=== PATIENT | female | born 1990 | race American Indian/Alaskan Native ===

== ENCOUNTER 2021-04-05 22:48 | Emergency (ER) | payer MEDICAID, OTHER ==
[2021-04-05] MEDS ORDERED: HYDROmorphone 1 MG/1 ML INJ IM ONE (23:03)
[2021-04-05] MEDS ORDERED: ONDANSETRON 4 MG/2 ML INJ IV ONE (23:03)
[2021-04-05] MEDS ORDERED: HYDROmorphone 1 MG/1 ML INJ ONE (23:04)
--- NOTE | 2021-04-05 23:19 | Emergency Department Report ---
HPI - General Chief Complaint: Extremity Injury, Lower Time Seen by Provider: 04/05/21 23:02 - HPI HPI: 30-year-old female with no known past medical history presents complaining of severe left ankle pain and dislocation after a trip and fall. The patient was bringing in boxes at home when her dog ran outside and in the chaos, she tripped on one of the steps coming down the stairs and fell onto her left ankle. She did not hit her head or lose consciousness. She bruised her left elbow but her only pain at this time is in her left ankle it is 10 out of 10 in severity. The ankle is deformed. The patient denies any other symptoms or complaints. Her LMP was 1 week ago. ED Past Medical Hx - Past Medical History Previous Medical History?: No ED Review of Systems ROS: Stated complaint: LT ANKLE INJURY Other details as noted in HPI Constitutional: denies: chills, fever Eyes: denies: eye pain, vision change ENT: denies: throat pain, congestion Respiratory: denies: cough, shortness of breath Cardiovascular: denies: chest pain, palpitations Gastrointestinal: denies: abdominal pain, nausea, vomiting Genitourinary: denies: dysuria, frequency Musculoskeletal: other (left ankle pain). denies: back pain Neurological: denies: headache, weakness, numbness, paresthesias Physical Exam - Physical Exam Vital Signs: Vital Signs 04/05/21 22:53 Temperature 98.0 F Pulse Rate 137 H Respiratory 20 Rate Blood Pressure 126/103 O2 Sat by Pulse 84 Oximetry Physical Exam: GENERAL: Well developed and well nourished. In moderate distress secondary to pain. HEAD: Normocephalic. No obvious signs of trauma. ENT: Moist mucous membranes. EYES: Extraocular movements are intact. Pupils are equal round and reactive to light bilaterally NECK: Supple. Full ROM is intact. Trachea is midline. LUNGS: Nonlabored breathing. Equal chest rise bilaterally. Clear to auscultation bilaterally. CARDIOVASCULAR: Regular rate and rhythm. No murmurs or rubs. VASCULAR: 2+ DP pulses bilaterally. Cap refill < 2 seconds bilateral toes and fingers ABDOMEN: Abdomen is soft and nondistended. There is no significant tenderness, guarding or rebound. SKIN: Skin is warm and dry NEURO: Patient is awake, alert, and oriented. 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 No focal deficits. Normal motor and sensory exam throughout with exception of the left ankle which cannot be assessed due to pain. Normal strength in bilateral toes. Normal sensation throughout all lower extremity dermatomes bilaterally. Normal speech. MUSCULOSKELETAL: Obvious deformity of the left ankle which is externally rotated with the tibia seen tenting the skin of the medial ankle. Neurovascularly intact distally. There is no tenderness of the base of the fifth metatarsal on the left. 2+ DP pulses bilaterally. The left elbow is slightly bruised but has full range of motion and is nontender. BACK/SPINE: No midline tenderness or step-offs of the C/T/L spine. No costovertebral angle tenderness. ED Course Vital Signs 04/05/21 22:53 Temperature 98.0 F Pulse Rate 137 H Respiratory 20 Rate Blood Pressure 126/103 O2 Sat by Pulse 84 Oximetry - Orthopedic Joint Reduction Joint #1 Consent Obtained: verbal consent Side: left Joint Reduction Location: ankle Analgesia: hematoma block Local Anesthetic Used: Lidocaine 1% Amount of Anesthetic Used (mls): 10 Technique Used: traction/counter-traction Post-Reduction Neuro Exam: intact, no change Post-Reduction Vascular Exam: intact, no change Post Reduction X-Ray Obtained: Yes Post Reduction X-Ray Results: reduced Splint Applied: Yes Patient Tolerated Procedure: well ED Medical Decision Making - Lab Data Result diagrams: 04/05/21 23:27 04/05/21 23:27 Lab Results 04/05/21 04/05/21 04/05/21 Range/Units 23:27 23:27 23:27 WBC 8.8 (4.5-11.0) K/mm3 RBC 4.11 (3.65-5.03) M/mm3 Hgb 13.7 (10.1-14.3) gm/dl Hct 39.5 (30.3-42.9) % MCV 96 (79-97) fl MCH 33 H (28-32) pg MCHC 35 H (30-34) % RDW 12.8 L (13.2-15.2) % Plt Count 245 (140-440) K/mm3 Lymph % (Auto) 27.1 (13.4-35.0) % [place] % (Auto) 5.9 (0.0-7.3) % Eos % (Auto) 2.0 (0.0-4.3) % Baso % (Auto) 0.5 (0.0-1.8) % Lymph # (Auto) 2.4 (1.2-5.4) K/mm3 [place] # (Auto) 0.5 (0.0-0.8) K/mm3 Eos # (Auto) 0.2 (0.0-0.4) K/mm3 Baso # (Auto) 0.0 (0.0-0.1) K/mm3 Seg Neutrophils % 64.5 (40.0-70.0) % Seg Neutrophils # 5.7 (1.8-7.7) K/mm3 PT 12.7 (12.2-14.9) Sec. INR 0.90 (0.87-1.13) APTT 26.9 (24.2-36.6) Sec. Sodium 144 (137-145) mmol/L Potassium 3.9 (3.6-5.0) mmol/L Chloride 106.2 (98-107) mmol/L Carbon Dioxide 25 (22-30) mmol/L Anion Gap 17 mmol/L BUN 14 (7-17) mg/dL Creatinine 0.8 (0.6-1.2) mg/dL Estimated GFR > 60 ml/min BUN/Creatinine Ratio 18 % Glucose 110 H (65-100) mg/dL Calcium 9.3 (8.4-10.2) mg/dL Total Bilirubin 0.60 (0.1-1.2) mg/dL Direct Bilirubin < 0.2 (0-0.2) mg/dL Indirect Bilirubin 0.4 mg/dL AST 18 (5-40) units/L ALT 8 (7-56) units/L Alkaline Phosphatase 67 (35-129) units/L Total Protein 7.4 (6.3-8.2) g/dL Albumin 4.6 (3.9-5) g/dL Albumin/Globulin Ratio 1.6 % HCG, Qual (Negative) 04/05/21 Range/Units 23:27 WBC (4.5-11.0) K/mm3 RBC (3.65-5.03) M/mm3 Hgb (10.1-14.3) gm/dl Hct (30.3-42.9) % MCV (79-97) fl MCH (28-32) pg MCHC (30-34) % RDW (13.2-15.2) % Plt Count (140-440) K/mm3 Lymph % (Auto) (13.4-35.0) % [place] % (Auto) (0.0-7.3) % Eos % (Auto) (0.0-4.3) % Baso % (Auto) (0.0-1.8) % Lymph # (Auto) (1.2-5.4) K/mm3 [place] # (Auto) (0.0-0.8) K/mm3 Eos # (Auto) (0.0-0.4) K/mm3 Baso # (Auto) (0.0-0.1) K/mm3 Seg Neutrophils % (40.0-70.0) % Seg Neutrophils # (1.8-7.7) K/mm3 PT (12.2-14.9) Sec. INR (0.87-1.13) APTT (24.2-36.6) Sec. Sodium (137-145) mmol/L Potassium (3.6-5.0) mmol/L Chloride (98-107) mmol/L Carbon Dioxide (22-30) mmol/L Anion Gap mmol/L BUN (7-17) mg/dL Creatinine (0.6-1.2) mg/dL Estimated GFR ml/min BUN/Creatinine Ratio % Glucose (65-100) mg/dL Calcium (8.4-10.2) mg/dL Total Bilirubin (0.1-1.2) mg/dL Direct Bilirubin (0-0.2) mg/dL Indirect Bilirubin mg/dL AST (5-40) units/L ALT (7-56) units/L Alkaline Phosphatase (35-129) units/L Total Protein (6.3-8.2) g/dL Albumin (3.9-5) g/dL Albumin/Globulin Ratio % HCG, Qual Negative (Negative) - Radiology Data LEFT ANKLE 2 VIEW(S) INDICATION / CLINICAL INFORMATION: trauma COMPARISON: None available. FINDINGS: BONES / JOINT(S): There is fracture dislocation at the ankle and distal fibula. The talus and foot are dislocated laterally and posterior relative to the tibia. There are fractures of the medial and lateral malleoli. There is a fracture fragment from the posterior tibia ( so-called trimalleolar fracture). There is a angulated fracture of the distal third of the fibula. SOFT TISSUES: There is soft tissue swelling ADDITIONAL FINDINGS: None. Signer Name: Ha Nino MD Signed: 04/05/2021 10:49 PM Workstation Name: [employer] LEFT FOOT 2 VIEW(S) INDICATION / CLINICAL INFORMATION: trauma COMPARISON: None available. FINDINGS: BONES / JOINT(S): Fracture dislocation of the ankle is noted. No fracture or dislocation is seen in the foot. No significant arthritis. SOFT TISSUES: No significant abnormality. ADDITIONAL FINDINGS: None. Signer Name: Ha Nino MD Signed: 04/05/2021 10:50 PM Workstation Name: [employer] LEFT ELBOW 2 VIEW(S) INDICATION / CLINICAL INFORMATION: trauma COMPARISON: None available. FINDINGS: BONES / JOINT(S): No acute fracture or subluxation. No significant arthritis. SOFT TISSUES: No significant abnormality. ADDITIONAL FINDINGS: None. Signer Name: Ha Nino MD Signed: 04/05/2021 11:58 PM POST-REDUCTION: LEFT ANKLE 2 VIEWS INDICATION / CLINICAL INFORMATION: post-reduction COMPARISON: None available. FINDINGS: BONES / JOINT(S): There has been reduction of the dislocated ankle joint. Trimalleolar fracture as well as frac ture of the distal third of the fibula noted. Alignment of the fractures is improved. SOFT TISSUES: There is soft tissue swelling ADDITIONAL FINDINGS: None. Signer Name: Ha Nino MD Signed: 04/05/2021 11:19 PM Workstation Name: [facility] LEFT TIBIA-FIBULA 2 VIEW(S) INDICATION / CLINICAL INFORMATION: post-reduction COMPARISON: None available. FINDINGS: BONES / JOINT(S): Postreduction radiographs show reduction of the dislocated ankle joint. Trimalleolar fracture and distal fibular fracture are again noted. The alignment of these fractures is improved from the initial radiographs. Proximal tibia and fibula appear intact. SOFT TISSUES: There is soft tissue swelling ADDITIONAL FINDINGS: None. Signer Name: Ha Nino MD Signed: 04/05/2021 11:33 PM Workstation Name: [id number] - Medical Decision Making 30-year-old female who presented with left ankle deformity after she fell down several stairs. Did not hit her head or lose consciousness. She denies injury to any other part of her body with the exception of some bruising of her left e lbow. The left ankle is deformed being severely externally rotated and the tibia is seen tenting the skin of the medial ankle. She is neurovascularly intact distally to the ankle with normal strength of all 5 left toes and normal sensation throughout all dermatomes of the left lower extremity. She has a 2+ DP pulse. I have ordered a full set of labs along with x-rays of the left tib- fib, ankle, and foot as well as x-ray of the left elbow. I will give 1 mg of Dilaudid and 4 mg of Zofran. We will plan to perform a hematoma block and give fentanyl prior to reduction. X-ray reveals fracture dislocation at the left ankle and distal fibula. The talus and foot are dislocated laterally and posterior relative to the tibia. There are fractures of the medial and lateral malleoli. There is a fracture fragment from the posterior tibia ( so-called trimalleolar fracture). There is a angulated fracture of the distal third of the fibula. Hematoma block was performed using 10 cc of lidocaine 1%. The patient was given 100 mcg of fentanyl. She was kept on a cardiac cath rn with oxygen saturation. The fracture dislocation was successfully reduced and splinted in a [place] splint. Post reduction films have been ordered. Given that she has an unstable fracture and we do not have orthopedic surgery on-call today, we will place a call to [facility] for transfer. At 12:10 AM, the patient was accepted as an ER to ER transfer to [facility] by Dr. Soler. We will arrange transport. Postreduction films confirm successful reduction. Post splinting neurovascular exam reveals normal strength in all 5 left toes and normal sensation with normal capillary refill. Her pain is well controlled. I explained the reason for the transfer given her unstable fracture need for orthopedic surgery consultation as well as all the risks. She expressed understanding and agreement and accepts the risks of transfer. Labs have resulted and reveal no significant leukocytosis or anemia. Creatinine is within normal range and there are no significant electrolyte abnormalities. Although the patient's initial vital signs list and O2 saturation of 84%, I personally witnessed the patient being connected to the monitor in the room and having her vital signs measured and at no point did her oxygen saturation drop below 94%. Critical care attestation.: If time is entered above; I have spent that time in minutes in the direct care of this critically ill patient, excluding procedure time. ED Disposition Clinical Impression: Fracture dislocation of left ankle joint, Closed left trimalleolar fracture Disposition: DC/TX-70 ANOTHER TYPE [facility] Is pt being admited?: No Condition: Stable Referrals: PRIMARY CARE, [Primary Care Provider] - 3-5 Days
[2021-04-05] MEDS ORDERED: LIDOCAINE (1%) 10 MG/1 ML VIAL 20 ML MDV INFILTRATI ONE (23:20)
[2021-04-05] MEDS ORDERED: fentaNYL 100 MCG/2 ML INJ IV ONE (23:21)
[2021-04-05] MEDS ORDERED: fentaNYL 100 MCG/2 ML INJ ONE (23:23)
--- NOTE | 2021-04-05 23:53 | XRay Report ---
LEFT ANKLE 2 VIEW(S) INDICATION / CLINICAL INFORMATION: trauma COMPARISON: None available. FINDINGS: BONES / JOINT(S): There is fracture dislocation at the ankle and distal fibula. The talus and foot ar e dislocated laterally and posterior relative to the tibia. There are fractures of the medial and lat eral malleoli. There is a fracture fragment from the posterior tibia ( so-called trimalleolar fractur e). There is a angulated fracture of the distal third of the fibula. SOFT TISSUES: There is soft tissue swelling ADDITIONAL FINDINGS: None. Signer Name: Ha Nino MD Signed: 04/05/2021 11:49 PM Workstation Name: [id number]
--- NOTE | 2021-04-05 23:54 | XRay Report ---
LEFT FOOT 2 VIEW(S) INDICATION / CLINICAL INFORMATION: trauma COMPARISON: None available. FINDINGS: BONES / JOINT(S): Fracture dislocation of the ankle is noted. No fracture or dislocation is seen in t he foot. No significant arthritis. SOFT TISSUES: No significant abnormality. ADDITIONAL FINDINGS: None. Signer Name: Ha Nino MD Signed: 04/05/2021 11:50 PM Workstation Name: [id number]
[2021-04-05 23:58] LABS: Alanine Aminotransferase 8 units/L (7-56); Albumin 4.6 g/dL (3.9-5); BUN/Creatinine Ratio 18; Blood Urea Nitrogen 14 mg/dL (7-17); Calcium 9.3 mg/dL (8.4-10.2); Hemolysis Index 3
[2021-04-05 23:59] LABS: Bilirubin,Direct < 0.2 mg/dL (0-0.2); INR 0.9 (0.87-1.13)
[2021-04-06] LABS: Partial Thromboplastin Time 26.9 Sec. (24.2-36.6)
--- NOTE | 2021-04-06 00:23 | XRay Report ---
LEFT ANKLE 2 VIEWS INDICATION / CLINICAL INFORMATION: post-reduction COMPARISON: None available. FINDINGS: BONES / JOINT(S): There has been reduction of the dislocated ankle joint. Trimalleolar fracture as we ll as fracture of the distal third of the fibula noted. Alignment of the fractures is improved. SOFT TISSUES: There is soft tissue swelling ADDITIONAL FINDINGS: None. Signer Name: Ha Nino MD Signed: 04/06/2021 12:19 AM Workstation Name: [id number]
--- NOTE | 2021-04-06 00:38 | XRay Report ---
LEFT TIBIA-FIBULA 2 VIEW(S) INDICATION / CLINICAL INFORMATION: post-reduction COMPARISON: None available. FINDINGS: BONES / JOINT(S): Postreduction radiographs show reduction of the dislocated ankle joint. Trimalleola r fracture and distal fibular fracture are again noted. The alignment of these fractures is improved from the initial radiographs. Proximal tibia and fibula appear intact. SOFT TISSUES: There is soft tissue swelling ADDITIONAL FINDINGS: None. Signer Name: Ha Nino MD Signed: 04/06/2021 12:33 AM Workstation Name: [id number]
[2021-04-06 00:40] VITALS: BP 106/86
[2021-04-06 00:40] LABS: Basophils % (Auto) 0.5 % (0.0-1.8); Eosinophils # (Auto) 0.2 K/mm3 (0.0-0.4); Hematocrit 39.5 % (30.3-42.9); Hemoglobin 13.7 gm/dl (10.1-14.3); Lymphocytes # (Auto) 2.4 K/mm3 (1.2-5.4); Lymphocytes % (Auto) 27.1 % (13.4-35.0); Mean Corpuscular HGB Conc 35 % (30-34); Mean Corpuscular Volume 96 fl (79-97); Monocytes # (Auto) 0.5 K/mm3 (0.0-0.8); Monocytes % (Auto) 5.9 % (0.0-7.3); Platelet Count 245 K/mm3 (140-440); Red Blood Count 4.11 M/mm3 (3.65-5.03); Red Cell Distribution Width 12.8 % (13.2-15.2)
--- NOTE | 2021-04-06 00:55 | XRay Report ---
LEFT TIB-FIB 2 views INDICATION / CLINICAL INFORMATION: trauma COMPARISON: None available. FINDINGS: BONES / JOINT(S): Cervical trimalleolar fracture with dislocation of ankle joint is noted. There is a fracture of the distal third of the fibula which is angulated. The proximal tibia and fibula appear intact. No significant arthritis. SOFT TISSUES: There is soft tissue swelling in the lower leg ADDITIONAL FINDINGS: None. Signer Name: Ha Nino MD Signed: 04/06/2021 12:51 AM Workstation Name: [id number]
--- NOTE | 2021-04-06 01:03 | XRay Report ---
LEFT ELBOW 2 VIEW(S) INDICATION / CLINICAL INFORMATION: trauma COMPARISON: None available. FINDINGS: BONES / JOINT(S): No acute fracture or subluxation. No significant arthritis. SOFT TISSUES: No significant abnormality. ADDITIONAL FINDINGS: None. Signer Name: Ha Nino MD Signed: 04/06/2021 12:58 AM Workstation Name: [id number]
== END 2021-04-06 01:29 | disposition other institution (70) ==
LOC: ED 22:48
DX: S82.852A Displaced trimalleolar fracture of left lower leg, initial encounter for closed fracture (principal); W01.0XXA Fall on same level from slipping, tripping and stumbling without subsequent striking against object, initial encounter; Y93.89 Activity, other specified; Y92.89 Other specified places as the place of occurrence of the external cause; Y99.8 Other external cause status
CPT/HCPCS: 27840; 36415; 73070; 73590; 73600; 73620; 80048; 80076; 84703; 85025; 85610; 85730; 96372; 96374; 96375; 99285; J1170; J2405; J3010